=== PATIENT | female | born 1990 | race African-American/Black ===

== ENCOUNTER 2021-03-09 22:57 | Emergency (ER) | payer MEDICARE, MEDICAID ==
[2021-03-10 01:23] LABS: Hemoglobin 12.1 g/dL (12.0-15.5); Mean Corpuscular HGB CONC 31.9 g/dL (32.0-36.0); Mean Corpuscular Hemoglobin 31.5 pg (27.0-33.0); Mean Corpuscular Volume 98.7 fl (81.6-98.3); Platelet Count 194 10x3/uL (150-450); RBC Distribution Width 14.2 % (11.5-14.5); Red Blood Cell (RBC) Count 3.84 10x6/uL (3.90-5.03); White Blood Cell (WBC) Count 5.3 10x3/uL (3.5-10.5)
[2021-03-10 01:31] LABS: ALT (SGPT) 32 U/L (8-55); AST (SGOT) 25 U/L (5-34); Acetaminophen Less than 6.0 mcg/mL (10.0-30.0); Albumin 3.2 g/dL (3.5-5.0); Alcohol Less than 10 mg/dL (Less than 10); Alkaline Phosphatase 98 U/L (40-110); Anion Gap 14 mmol/L (10-20); BUN (Urea Nitrogen) 6 mg/dL (7.0-18.7); Bilirubin, Total 0.6 mg/dL (0.2-1.2); CK (CPK) 44 U/L (29-168); Calc. Creatinine Clearance 0 mL/min (70-130); Calcium 8.9 mg/dL (7.8-10.44); Carbon Dioxide 25 mmol/L (22-29); Chloride 106 mmol/L (98-107); Globulin 2.7 g/dL (2.4-3.5); Glucose 127 mg/dL (70-105); Potassium 3.6 mmol/L (3.5-5.1); Protein, Total 5.9 g/dL (6.0-8.3); Salicylate Less than 8.0 mg/dL (15.0-30.0); Sodium 141 mmol/L (136-145)
[2021-03-10 01:40] LABS: MDiff Complete? YES
[2021-03-10 01:49] LABS: Band 3 % (5-11); Eosinophils 2 % (0-10); Lymphocytes 40 % (21-51); Monocytes 25 % (0-10); Neutrophil 28 % (42-75); Nucleated RBC 1 % (0); Reactive Lymphocytes 2 % (0-10)
[2021-03-10 01:53] LABS: Anisocytosis SLIGHT = 6-15 cells (100X) (0-5/hpf); Polychromasia SLIGHT = 2-3 cells (100X) (0-2/hpf); Reflex for Review?? YES
[2021-03-10 01:54] LABS: Platelet Morphology Comment Appears Adequate
== END 2021-03-10 08:00 | disposition home or self-care (01) ==
LOC: CSHERS 22:57
DX: F91.9 Conduct disorder, unspecified (principal); J45.909 Unspecified asthma, uncomplicated; G40.909 Epilepsy, unspecified, not intractable, without status epilepticus; Z87.891 Personal history of nicotine dependence; Z72.89 Other problems related to lifestyle
CPT/HCPCS: 36415; 80053; 80307; 82550; 85025; 85060; 99284